=== PATIENT | female | born 1960 | race Caucasian/White ===

== ENCOUNTER → 2018-06-22 | Outpatient (CLI) | payer OTHER ==
--- NOTE | 2018-06-22 11:03 | XR ---
EXAMINATION TYPE: XR chest 2V DATE OF EXAM: 06/22/2018 COMPARISON: NONE HISTORY: Trauma and pain TECHNIQUE: Frontal and lateral views of the chest are obtained. FINDINGS: There is no focal air space opacity, pleural effusion, or pneumothorax seen. The cardiac silhouette size is within normal limits. The osseous structures are intact. Surgical clips present in the right upper quadrant. Mild apical pleural scarring is present. Interstitium mildly increased. IMPRESSION: No acute cardiopulmonary process. There may be some underlying interstitial lung disease .
--- NOTE | 2018-06-22 11:25 | XR ---
EXAMINATION TYPE: XR knee complete LT DATE OF EXAM: 06/22/2018 COMPARISON: NONE HISTORY: Pain TECHNIQUE: Four views are submitted. FINDINGS: Joint spaces are preserved. Osseous structures are intact. No acute fracture seen. Density overlyi ng the posterior margin of the joint space may represent small loose bodies. There is a small amount of free fluid in the suprapatellar bursa. IMPRESSION: 1. No acute fracture or dislocation. 2. Small amount of fluid in the suprapatellar bursa. See above
--- NOTE | 2018-06-22 11:29 | XR ---
EXAMINATION TYPE: XR thoracic spine complete DATE OF EXAM: 06/22/2018 COMPARISON: NONE HISTORY: Pain Alignment is anatomic. There is no compression deformities. Multilevel mild degenerative disc diseas e. No obvious compression deformities. IMPRESSION: 1. No acute abnormality.
== END | disposition home or self-care (01) ==
LOC: RADXRMAIN 10:23
PROVIDERS: ATTEND Emergency Medicine
DX: R07.9 Chest pain, unspecified (principal); S80.02XA Contusion of left knee, initial encounter; S23.3XXA Sprain of ligaments of thoracic spine, initial encounter
CPT/HCPCS: 71046; 72072

== ENCOUNTER 2019-02-22 16:06 | Emergency (ER) | payer OTHER ==
[2019-02-22 17:01] VITALS: BP 127/80; PULSE 58; RESP 18; TEMP 98.4
--- NOTE | 2019-02-22 19:07 | XR ---
EXAMINATION: XR chest 2V DATE AND TIME: 02/22/2019 6:17 PM CLINICAL INDICATION: [facility]; Cough/pain TECHNIQUE: Departmental protocol COMPARISON: 06/22/2018 FINDINGS: The lungs are clear. The pleural spaces are negative. The cardiac silhouette is not enlarged. The remainder of the mediastinal silhouette is unremarkable. The skeletal structures and soft tissues are negative for acute findings. IMPRESSION: NO ACUTE PROCESS.
--- NOTE | 2019-02-22 19:08 | XR ---
PROCEDURE: XR knee complete RT - 3V DATE AND TIME: 02/22/2019 6:17 PM CLINICAL INDICATION: PH[facility]; Pain TECHNIQUE: Department protocol COMPARISON: None FINDINGS: There is no fracture or malalignment. The soft tissues are unremarkable. IMPRESSION: NO ACUTE PROCESS.
--- NOTE | 2019-02-22 19:11 | ED ---
Fall HPI - General Chief Complaint: Fall Stated Complaint: fall/chest discomfort [facility] Time Seen by Provider: 02/22/19 17:58 Source: patient Mode of arrival: ambulatory - History of Present Illness Initial Comments: Patient is 59-year-old male presenting to emergency department after fall. Patient reports falling 3 days ago when she tripped over a large steel beam and falling forward. Patient reports the left knee making initial contact but no trauma to the head. Patient denied loss of consciousness the time incident. Patient reports mild pain and ecchymosis on the right knee. Patient also reports pain with palpation along left rib #10. Patient denies any other injuries. Patient denies taking any medication to alleviate the pain. Patient denies nausea, vomiting, headaches, chest pain, chest tightness, shortness of breath, numbness or tingling. - Related Data Previous Rx's Medication Instructions Recorded Acetaminophen Tab [Tylenol Tab] 500 mg PO Q4H #30 tablet 02/22/19 Ibuprofen [Motrin] 400 mg PO Q6HR PRN #20 tab 02/22/19 Allergies Allergy/AdvReac Type Severity Reaction Status Date / Time No Known Allergies Allergy Verified 02/22/19 17:01 Review of Systems ROS Statement: Those systems with pertinent positive or pertinent negative responses have been documented in the HPI. ROS Other: All systems not noted in ROS Statement are negative. Past Medical History Past Medical History: Cancer History of Any Multi-Drug Resistant Organisms: None Reported Past Surgical History: Breast Surgery Past Psychological History: No Psychological Hx Reported Smoking Status: Current every day smoker Past Alcohol Use History: None Reported Past Drug Use History: None Reported General Exam Limitations: no limitations General appearance: alert, in no apparent distress Head exam: Present: atraumatic, normocephalic, normal inspection Eye exam: Present: normal appearance, PERRL, EOMI Pupils: Present: normal accommodation ENT exam: Present: normal exam, mucous membranes moist Neck exam: Present: normal inspection, full ROM. Absent: tenderness, lymphadenopathy Respiratory exam: Present: normal lung sounds bilaterally. Absent: respiratory distress, wheezes Cardiovascular Exam: Present: regular rate, normal rhythm, normal heart sounds Right Hip exam: Present: normal inspection, full ROM Upper Leg exam: Present: normal inspection, full ROM Knee exam: Present: full ROM, ecchymosis (Ecchymosis on the anterior aspect of the knee.). Absent: tenderness (Mild tenderness to palpation), swelling, esther walter, laceration Lower Leg exam: Present: normal inspection, full ROM. Absent: Homans' sign Ankle exam: Present: normal inspection, full ROM Foot/Toe exam: Present: normal inspection, full ROM Neurovascular tendon exam: Present: no vascular compromise Gait: observed and limited by pain Back exam: Present: normal inspection, full ROM Neurological exam: Present: alert, oriented X3 Psychiatric exam: Present: normal affect, normal mood Skin exam: Present: warm, intact, normal color Course Vital Signs 02/22/19 16:57 Temperature 98.4 F Pulse Rate 58 L Respiratory 18 Rate Blood Pressure 127/80 O2 Sat by Pulse 100 Oximetry Medical Decision Making - Medical Decision Making Patient is 59-year-old female presented to emergency department after fall. X- rays negative for any acute fractures or dislocations of the knee or rubs. Patient advised to alternate between Tylenol and ibuprofen for pain control. I counseled the patient for smoking cessation for greater than 3 minutes Patient advised to follow-up with orthopedics. Patient advised to return to emergency department if symptoms worsen. Case discussed with physician. Disposition Clinical Impression: Fall Disposition: HOME SELF-CARE Instructions (If sedation given, give patient instructions): Fall Prevention for Children (ED) Additional Instructions: Please alternate between Tylenol and ibuprofen for pain control. please follow up primary care. Please return to emergency department if symptoms worsen. Prescriptions: Ibuprofen [Motrin] 400 mg PO Q6HR PRN #20 tab PRN Reason: Pain Acetaminophen Tab [Tylenol Tab] 500 mg PO Q4H #30 tablet Is patient prescribed a controlled substance at d/c from ED?: No Referrals: None,Stated [Primary Care Provider] - 1-2 days Tj Corado DO [Doctor of Osteopathic Medicine] - 1-2 days Time of Disposition: 19:11
== END 2019-02-22 19:19 | disposition home or self-care (01) ==
LOC: EC 16:06
DX: S80.02XA Contusion of left knee, initial encounter (principal); F17.200 Nicotine dependence, unspecified, uncomplicated; Z85.9 Personal history of malignant neoplasm, unspecified; Z71.6 Tobacco abuse counseling; W01.0XXA Fall on same level from slipping, tripping and stumbling without subsequent striking against object, initial encounter; Y92.69 Other specified industrial and construction area as the place of occurrence of the external cause; Y99.0 Civilian activity done for income or pay
CPT/HCPCS: 71046; 99283; 99406

== ENCOUNTER → 2019-06-16 | Outpatient (CLI) | payer BC ==
--- NOTE | 2019-06-17 14:08 | MM ---
Reason for exam: screening (asymptomatic). Last mammogram was performed 4 years and 2 months ago. History: Patient is postmenopausal, has history of breast cancer at age 48, and history of other cancer. Chemotherapy. Radiation therapy. Physical Findings: A clinical breast exam by your physician is recommended on an annual basis and results should be correlated with mammographic findings. MG 3D Screening Mammo W/Cad Bilateral CC and MLO view(s) were taken. Prior study comparison: April 16, 2015, bilateral MG screening mammo w CAD. 2006, mammogram, performed at [facility]. The breast tissue is heterogeneously dense. This may lower the sensitivity of mammography. No significant changes when compared with prior studies. ASSESSMENT: Negative, BI-RAD 1 RECOMMENDATION: Routine screening mammogram of both breasts in 1 year.
== END | disposition home or self-care (01) ==
LOC: RADMAMWWP 07:34
PROVIDERS: ATTEND Family Medicine
DX: Z12.31 Encounter for screening mammogram for malignant neoplasm of breast (principal)
CPT/HCPCS: 77063; 77067

== ENCOUNTER → 2020-03-16 | Outpatient (CLI) | payer OTHER ==
--- NOTE | 2020-03-16 18:32 | XR ---
EXAMINATION TYPE: XR Hip Complete RT DATE OF EXAM: 03/16/2020 COMPARISON: None HISTORY: Pain TECHNIQUE: 2 views FINDINGS: There is no evidence of fracture nor dislocation. Hip joint space is fairly normal. There i s no sign of hip dysplasia. IMPRESSION: Negative right hip exam.
--- NOTE | 2020-03-16 18:34 | XR ---
EXAMINATION TYPE: XR femur RT DATE OF EXAM: 03/16/2020 COMPARISON: NONE HISTORY: Pain TECHNIQUE: 4 views FINDINGS: There is no fracture nor dislocation. Joint spaces appear normal. Soft tissues appear virgie l. IMPRESSION: Negative right femur exam.
--- NOTE | 2020-03-16 18:34 | XR ---
EXAMINATION TYPE: XR knee complete RT DATE OF EXAM: 03/16/2020 COMPARISON: 02/22/2019 HISTORY: Pain TECHNIQUE: 3 views FINDINGS: There is no fracture nor dislocation. Joint spaces are normal. There is no sign of knee sammie nt effusion. IMPRESSION: Negative right knee exam. No fracture.
--- NOTE | 2020-03-16 18:36 | XR ---
EXAMINATION TYPE: XR tibia fibula bilateral DATE OF EXAM: 03/16/2020 COMPARISON: NONE HISTORY: Pain TECHNIQUE: 4 views each tibia and fibula FINDINGS: There is no evidence of fracture nor dislocation. Joint spaces appear normal. There is no e vidence of radiopaque foreign body. The knee joint and ankle joint appear intact bilaterally. IMPRESSION: Negative bilateral tibia and fibula exam.
== END | disposition home or self-care (01) ==
LOC: RADXRMAIN 17:43
PROVIDERS: ATTEND Emergency Medicine
DX: S70.01XA Contusion of right hip, initial encounter (principal); S80.01XA Contusion of right knee, initial encounter; S80.12XA Contusion of left lower leg, initial encounter
CPT/HCPCS: 73502

== ENCOUNTER → 2020-03-27 | Outpatient (CLI) | payer OTHER ==
--- NOTE | 2020-03-27 12:50 | XR ---
EXAMINATION TYPE: XR knee complete RT DATE OF EXAM: 03/27/2020 COMPARISON: 03/16/2020 HISTORY: Swelling and pain TECHNIQUE: Three views are submitted. FINDINGS: Joint spaces are preserved. Osseous structures are intact. No acute fracture seen. IMPRESSION: 1. No acute fracture or dislocation.
== END | disposition home or self-care (01) ==
LOC: RADXRMAIN 12:31
PROVIDERS: ATTEND Emergency Medicine
DX: S80.01XD Contusion of right knee, subsequent encounter (principal)